=== PATIENT | female | born 2000 | race Caucasian/White ===

== ENCOUNTER 2025-07-18 06:16 | Inpatient (IN) ==
[2025-07-18] MEDS ORDERED: REGLAN INJ 10 MG VIAL IVP PRN (06:25)
[2025-07-18] MEDS ORDERED: ZOFRAN INJ 4 MG VIAL IVP PRN (06:25)
[2025-07-18] MEDS ORDERED: NUBAIN INJ 20 MG AMP IVP PRN (06:25)
[2025-07-18] MEDS: D5 1/2 NS 1,000 ML 1,000 ML IV SCH (06:45)
--- NOTE | 2025-07-18 07:14 | DR.OB ---
OB QUICK NOTE Assessment/Plan (1) Elective induction of labor planned: Assessment/Plan: L&D 07/18/25 at 6:55am S-No complaint. O-Afebrile,VSS JQY=251 with good LTV, +accel, no decel. CTX=irregular, mild CVX=1cm/50%/-1/VTX AROM with light meconium. IUPC and FSE placed. A-IUP at 39 0/7 weeks for induction Rh- anemia Bipolar disorder P-Begin pitocin induction F/U labs Anticipate
[2025-07-18] MEDS: OXYTOCIN 20 UNIT/1,000 ML-NS 20 UNIT/1,000 ML PLAST..BAG IV PRN (07:20)
[2025-07-18] MEDS: NUBAIN INJ 10 MG AMP ONE (07:50)
[2025-07-18] MEDS: LR 1,000 ML IV 1,000 ML IV ONE (09:17)
[2025-07-18] MEDS: FENTANYL VIAL INJ 100 mcg ONE (11:03)
[2025-07-18] MEDS: NAROPIN EPIDURAL 0.2% 100 ML ONE (11:03)
--- NOTE | 2025-07-18 12:30 | DR.OB ---
OB QUICK NOTE Assessment/Plan (1) Elective induction of labor planned: Assessment/Plan: L&D 07/18/25 at 11:55am Pitocin=10mu/min. S-No complaint. s/p epidural. O-Afebrile,VSS QET=123 with good LTV, +accel, no decel. CTX=q 1 1/2 to 2 min., about 45-65mmHg CVX=7cm/100%/0/VTX A-IUP at 39 0/7 weeks for induction Rh- anemia bipolar d/o P-Continue pitocin induction Anticipate
[2025-07-18] MEDS: BETADINE SOLN ONE (12:45)
[2025-07-18] MEDS: PITOCIN IVP ONE (13:37)
[2025-07-18] MEDS ORDERED: MOTRIN TAB 800 MG PO PRN (13:44)
[2025-07-18] MEDS ORDERED: MILK OF MAGNESIA PO PRN (14:26)
[2025-07-18] MEDS ORDERED: AMBIEN PO PRN (14:26)
--- NOTE | 2025-07-18 14:39 | DR.OB ---
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 Mother and stable. Head delivered over intact perineum. Nuchal cord x 1 tight but reduced. Nose and mouth bulb suctioned. Body delivered over intact perineum. Cord clamped x 2 and cut. Infant handed to attendant. Cord sent for gases. Placenta delivered spontaneously / intact / 3 vessel cord over intact perineum. No CVX / vaginal / perineal tears noted. Viable female infant delivered by , VTX/OA, wt=6'11" and 7/8, stable to NBN. Mother stable to RR. WCN=[id number].
[2025-07-18] MEDS: OXYTOCIN 20 UNIT/1,000 ML-NS 20 UNIT/1,000 ML PLAST..BAG IV SCH (14:52)
[2025-07-18] MEDS ORDERED: HYPERRHO S/D (or RHOGAM) IM ONE (16:23)
[2025-07-18] MEDS: HYPERRHO S/D (or RHOGAM) IM PRN (16:35)
[2025-07-18] MEDS: ADACEL or BOOSTRIX TDaP VACCINE IM ONE (16:41)
[2025-07-18] MEDS: MOTRIN TAB 800 MG PO PRN (17:05)
[2025-07-18] MEDS: ALPRAZOLAM ODT PO PRN (19:56)
[2025-07-18] MEDS: DERMOPLAST PAIN RELIEF SPRAY TOP PRN (21:30)
[2025-07-19 08:14] VITALS: BP 130/76; PULSE 68; RESP 19; TEMP 97.6; O2SAT 100
[2025-07-19] MEDS ORDERED: ZOLOFT ONE (08:20)
[2025-07-19] MEDS: PRENATAL PLUS PO SCH (08:23)
[2025-07-19] MEDS: ZOLOFT PO SCH (09:22)
== END 2025-07-19 09:45 | disposition home or self-care (01) | DRG 806 ==
LOC: LD 06:16 → MED/SURG 15:11
PROVIDERS: ADMIT Specialist; ATTEND Specialist
DX: F41.8 Other specified anxiety disorders; F31.89 Other bipolar disorder; D50.8 Other iron deficiency anemias; O99.343 Other mental disorders complicating pregnancy, third trimester; O99.113 Other diseases of the blood and blood-forming organs and certain disorders involving the immune mechanism complicating pregnancy, third trimester; Z3A.39 39 weeks gestation of pregnancy; O99.013 Anemia complicating pregnancy, third trimester; Z37.0 Single live birth; O99.345 Other mental disorders complicating the puerperium